=== PATIENT | female | born 1950 | race Caucasian/White ===

== ENCOUNTER 2017-04-11 22:38 | Emergency (ER) | payer MEDICARE ==
[~2017-04-11] VITALS: Ht 162.6 cm; Wt 53.6 kg
[2017-04-11] MEDS ORDERED: MORPHINE SULFATE 4 MG/ML, 1ML IVPush PRN (23:30)
[2017-04-11] MEDS ORDERED: SODIUM CHLORIDE 0.9% 1,000ML IVBOLUS ONE (23:30)
[2017-04-11] MEDS ORDERED: ONDANSETRON 2MG/ML, 2ML IVPush ONE (23:30)
[2017-04-11] MEDS ORDERED: SODIUM CHLORIDE FLUSH 10ML SYR IVF ONE (23:30)
[2017-04-11] MEDS ORDERED: MORPHINE SULFATE 4 MG/ML, 1ML ONE (23:37)
[2017-04-11] MEDS ORDERED: ONDANSETRON 2MG/ML, 2ML ONE (23:37)
[2017-04-11] MEDS ORDERED: LOSA1TAB18 PO (23:52)
[2017-04-12 00:10] LABS: HEMATOCRIT 29.3 % (34.6-47.8); HEMOGLOBIN 8.9 g/dL (11.7-16.4)
[2017-04-12 00:13] LABS: ASPARTATE AMINO TRANSFERASE 28 U/L (15-37); BLOOD UREA NITROGEN 21 mg/dL (7-18)
[2017-04-12] MEDS ORDERED: OMNIPAQUE 350 MG/ML, 100ML BOTTLE ONE (00:38)
[2017-04-12 00:47] LABS: DIFF TOTAL CELLS COUNTED 100 CELL DIFF
[2017-04-12 00:50] LABS: ANISOCYTOSIS 1+; HYPOCHROMIA 1+; POLYCHROMASIA 1+; VERIFY COUNTS? YES
[2017-04-12 02:26] VITALS: BP 157/99
== END 2017-04-12 02:30 | disposition home or self-care (01) ==
LOC: ED 23:59
DX: R10.32 Left lower quadrant pain (principal); N89.8 Other specified noninflammatory disorders of vagina; R11.2 Nausea with vomiting, unspecified; R63.0 Anorexia; I10 Essential (primary) hypertension; Z90.710 Acquired absence of both cervix and uterus
CPT/HCPCS: 36415; 74177; 80053; 81001; 83690; 85025; 87086; 96361; 96374; 96375; 99285; J2405; J7030; Q9967

== ENCOUNTER 2017-04-22 23:05 | Emergency (ER) | payer MEDICARE ==
[~2017-04-22] VITALS: Ht 165.1 cm; Wt 50.0 kg
[~2017-04-22 23:05] MED LIST: CIPR500T3 PO; LOSA1TAB18 PO; METR500T8 PO
[2017-04-22 23:10] VITALS: BP 163/94
[2017-04-22] MEDS ORDERED: MIRALAX (23:32)
[2017-04-22] MEDS ORDERED: ALBUTEROL MDI (23:32)
[2017-04-23] MEDS ORDERED: ACETAMINOPHEN 325 MG TABLET PO ONE (01:30)
[2017-04-23] MEDS ORDERED: HYDROCORTISONE 25 MG SUPP PR ONE (01:30)
[2017-04-23] MEDS ORDERED: ACETAMINOPHEN 500 MG TABLET ONE (01:40)
== END 2017-04-23 02:30 | disposition home or self-care (01) ==
LOC: ED 23:59
DX: K64.8 Other hemorrhoids (principal); I10 Essential (primary) hypertension; Z90.710 Acquired absence of both cervix and uterus; Z87.891 Personal history of nicotine dependence
CPT/HCPCS: 99283